=== PATIENT | female | born 2000 | race Caucasian/White ===

== ENCOUNTER 2022-11-10 23:59 | Emergency (ER) | payer OTHER, SELFPAY ==
[2022-11-11 00:18] VITALS: BP 147/66; PULSE 87; RESP 16; TEMP 36.9; O2SAT 99; BMI 44.4
--- NOTE | 2022-11-11 00:36 | ED.FEMALEGU ---
HPI - Female Genitourinary General Chief complaint: Urogenital-Female Stated complaint: Vaginal Bleeding Time Seen by Provider: 11/11/22 00:21 Source: patient Mode of arrival: ambulatory Limitations: no limitations History of Present Illness HPI Narrative: Patient comes to the emergency room complaining of vaginal bleeding. Patient states that she has taken 3 home tests, 2 of them have been faintly positive. Patient states that she is 19 days late for her menstrual period. Patient states that today after work, she noticed that she was having some vaginal bleeding and eventually decrease and now the patient has spotting. Patient states that approximately 1 year ago she had an elective . If patient is , this is her 2nd . Patient denies abdominal pain or cramping. Related Data Allergies Allergy/AdvReac Type Severity Reaction Status Date / Time No Known Allergies Allergy Unverified 05/16/20 19:30 [No Known Allergies*] Review of Systems Review of Systems: Constitutional : No Weight loss, No Fever, No Chills, No Night Sweats, No Fatigue, No Malaise ENT/Mouth : No Hearing loss, No Ear Pain, No Nasal Congestion, No Sinus Pain, No Hoarseness, No sore throat, No Rhinorrhea, No Swallowing Difficulty Eyes: No Eye Pain, No Swelling, No Redness, No Foreign Body, No Discharge, No Vision Changes Cardiovascular : No Chest Pain, No SOB, No Dyspnea on Exertion, No Orthopnea, No Edema, No Palpitations Respiratory : No Cough, No Sputum, No Wheezing, No Smoke Exposure, No Dyspnea Gastrointestinal : No Nausea, No Vomiting, No Diarrhea, No Constipation, No abdominal Pain, No Hematochezia, No Melena Genitourinary : Patient complaining of vaginal bleeding and spotting, No Dysuria, No Urinary Frequency, No Hematuria, No Urinary Incontinence, No Urgency, No Flank Pain, No Urinary Flow Changes, No Hesitancy Musculoskeletal : No joint pain, No Myalgias, No Joint Swelling Skin : No Skin Lesions, No rash Neuro : No Weakness, No Numbness, No Paresthesias, No Loss of Consciousness, No Dizziness, No Headache Psych : No Anxiety/Panic, No Depression, No SI/HI/AH/VH, No Social Issues, Heme/Lymph: No Bruising, No Bleeding,No Lymphadenopathy Endocrine : No Polyuria, No Polydipsia, No Temperature Intolerance PMFSH Social History Social History Advance Directives: No Advance Directives Information Provided: No Physical Exam Vital Signs: Vital Signs: Last Vital Signs Temp 98.4 F 11/11/22 00:18 Pulse 87 11/11/22 00:18 Resp 16 11/11/22 00:18 BP 147/66 H 11/11/22 00:18 Pulse Ox 99 11/11/22 00:18 O2 Del Method 11/11/22 00:18 BMI result Body Mass Index 44.4 Const: Other: Appearance: Alert. Oriented X3. No acute distress. Well appearing Eyes: Pupils equal, round and reactive to light. ENT: Pharynx normal. Neck: Normal inspection. Neck supple. No lymph nodes noted. No crepitus CVS: Normal heart rate and rhythm. Pulses normal. Normal S1 and S2 Respiratory: No respiratory distress. Breath sounds normal. No Wheezing. No rales Abdomen: Soft and nontender. No rigidity. No distention. Skin: Skin warm and dry. Normal skin color. Normal skin turgor. Extremities: No lower extremity edema. No Lacerations. No Rash Neuro: Oriented X 3. No motor deficit. No sensory deficit. Moving all extremities. No slurred speech. CN 2 through 12 grossly intact Psych: calm, cooperative, normal affect Course Course Course Narrative: -patient's labs an hCG levels pending. Medical Decision Making Medical Decision Making [facility] Narrative: -patient's hCG is negative. Patient's abdominal exam was benign. Patient likely has vaginal bleeding secondary to menstrual. Differential Diagnosis Differential Diagnoses: The differential diagnosis associated with the presentation includes (Menstrual period, miscarriage, dysfunctional urine bleeding) Lab Data [facility] Lab Attestation statement: I reviewed the patient's lab results. 11/11/22 00:42 11/11/22 00:42 Labs: Lab Results 11/11/22 11/11/22 11/11/22 Range/Units 00:42 00:42 00:42 WBC 9.2 (4.8-10.8) X10*3/uL RBC 4.46 (4.20-5.50) X10*6/uL Hgb 12.3 (12.0-16.0) g/dl Hct 38.0 (37.0-47.0) % MCV 85.2 (80.0-98.0) fL MCH 27.6 (27.0-33.0) pg MCHC 32.4 (31.0-35.0) g/dl RDW 13.1 (11.0-16.0) % Plt Count 402 H (160-400) X10*3/uL MPV 9.2 L (9.4-12.3) fL Immature Gran % (Auto) 0.3 (0.0-0.4) % Neut % (Auto) 65.3 (45-73) % Lymph % (Auto) 26.4 (20-40) % Craig % (Auto) 6.6 (2-11) % Eos % (Auto) 1.1 (0-4) % Baso % (Auto) 0.3 (0-2) % Lymph # (Auto) 2.4 (1.2-4.9) X10*3/uL Craig # (Auto) 0.6 (0.1-1.2) X10*3/uL Eos # (Auto) 0.1 (0.0-0.4) X10*3/uL Baso # (Auto) 0.0 (0.0-0.2) X10*3/uL Abs Immat Gran (auto) 0.03 (0.00-0.03) X10*3/uL Absolute Neuts (auto) 6.0 (2.0-8.3) x10*3/uL Absolute Nucleated RBC 0.000 (0.0-0.012) X10*3/uL Nucleated RBC % (auto) 0.0 (0.0-0.2) /100WBC Sodium 141 (135-145) mmol/L Potassium 4.2 (3.3-5.1) mmol/L Chloride 110 H (96-108) mmol/L Carbon Dioxide 24 (22-29) mmol/L Anion Gap 11 L (12-20) BUN 16 (9-16) mg/dL Creatinine 0.71 (0.5-1.4) mg/dL Estim Creat Clear Calc 130.2 Estimated GFR > 60 Random Glucose 98 (60-115) mg/dL Calcium 8.9 (8.4-10.2) mg/dL Total Bilirubin 0.3 (0.0-1.0) mg/dL Direct Bilirubin < 0.2 (0.0-0.5) mg/dL AST 18 (5-31) U/L ALT 14 (0-31) U/L Alkaline Phosphatase 80 (39-117) U/L Total Protein 7.0 (6.5-8.0) g/dL Albumin 4.1 (3.5-5.0) g/dL Beta HCG, Quant < 2 mIU/mL Blood Type O Positive Discharge Plan Discharge Clinical Impression: Menstrual changes Patient Disposition: Home, Self-Care Additional Instructions: Please follow-up with your primary care physician tomorrow. If you have any worsening or new symptoms, please return to the emergency room or call 911
[2022-11-11 00:46] LABS: MANUAL DIFF FLAG NO
[2022-11-11 00:49] LABS: Basophils Percent Auto 0.3 % (0-2); Eosinophils Absolute Auto 0.1 X10*3/uL (0.0-0.4); Eosinophils Percent Auto 1.1 % (0-4); Hemoglobin 12.3 g/dl (12.0-16.0); Imm Gran Abs Auto 0.03 X10*3/uL (0.00-0.03); Imm Gran Pct Auto 0.3 % (0.0-0.4); Lymphocytes Absolute Auto 2.4 X10*3/uL (1.2-4.9); Lymphocytes Percent Auto 26.4 % (20-40); Mean Corpuscular HGB Conc 32.4 g/dl (31.0-35.0); Mean Corpuscular Hemoglobin 27.6 pg (27.0-33.0); Mean Corpuscular Volume 85.2 fL (80.0-98.0); Mean Platelet Volume 9.2 fL (9.4-12.3); Monocytes Absolute Auto 0.6 X10*3/uL (0.1-1.2); Monocytes Percent Auto 6.6 % (2-11); Neutrophils Percent Auto 65.3 % (45-73); Platelet Count 402 X10*3/uL (160-400); Red Blood Count 4.46 X10*6/uL (4.20-5.50); Red Cell Distribution Width 13.1 % (11.0-16.0); White Blood Count 9.2 X10*3/uL (4.8-10.8)
[2022-11-11 01:16] LABS: Alanine Aminotransferase 14 U/L (0-31); Albumin Level 4.1 g/dL (3.5-5.0); Alkaline Phosphatase 80 U/L (39-117); Anion Gap 11 (12-20); Aspartate Amino Transferase 18 U/L (5-31); Bilirubin Direct < 0.2 mg/dL (0.0-0.5); Bilirubin Total 0.3 mg/dL (0.0-1.0); Blood Urea Nitrogen 16 mg/dL (9-16); Calcium 8.9 mg/dL (8.4-10.2); Carbon Dioxide 24 mmol/L (22-29); Chloride 110 mmol/L (96-108); Creatinine Clr Calc Pharmacy 130.2; Estimated Glomerular Filt Rate > 60; Glucose Random 98 mg/dL (60-115); HCG Quantitative < 2 mIU/mL; Potassium 4.2 mmol/L (3.3-5.1); Sodium 141 mmol/L (135-145)
== END 2022-11-11 01:39 | disposition home or self-care (01) ==
PROVIDERS: Emergency Provider Emergency Medicine
DX: N92.6 Irregular menstruation, unspecified (principal); Z79.899 Other long term (current) drug therapy
CPT/HCPCS: 36415; 80048; 80076; 84702; 85025; 86900; 86901; 99283; 99284

== ENCOUNTER 2022-11-28 18:35 | Emergency (ER) | payer OTHER, SELFPAY ==
--- NOTE | ~2022-11-28 | XR_ITS ---
EXAMINATION: XR foot LT 2V, XR ankle LT min 3V CLINICAL INFORMATION: Reason for Exam Lt foot pain COMPARISON: None. TECHNIQUE: 3 views of the foot and 2 views of the ankle FINDINGS: Acute nondisplaced transversely oriented comminuted fracture of the base of the fifth metatarsal neck (Salter fracture). No acute fracture or dislocation involving the ankle. Joint spaces are maintained without significant degenerative change. Soft tissue swelling along the dorsum of the foot and about the ankle. No tibiotalar joint effusion.. XR/XR ankle LT min 3V IMPRESSION: 1. Acute nondisplaced transversely oriented comminuted fracture of the base of the fifth metatarsal neck (Salter fracture). 2. Soft tissue swelling along the dorsum of the foot and about the ankle.
--- NOTE | ~2022-11-28 | XR_ITS ---
EXAMINATION: XR foot LT 2V, XR ankle LT min 3V CLINICAL INFORMATION: Reason for Exam Lt foot pain COMPARISON: None. TECHNIQUE: 3 views of the foot and 2 views of the ankle FINDINGS: Acute nondisplaced transversely oriented comminuted fracture of the base of the fifth metatarsal neck (Salter fracture). No acute fracture or dislocation involving the ankle. Joint spaces are maintained without significant degenerative change. Soft tissue swelling along the dorsum of the foot and about the ankle. No tibiotalar joint effusion.. XR/XR foot LT 2V IMPRESSION: 1. Acute nondisplaced transversely oriented comminuted fracture of the base of the fifth metatarsal neck (Salter fracture). 2. Soft tissue swelling along the dorsum of the foot and about the ankle.
--- NOTE | 2022-11-28 18:48 | ED_ITS ---
HPI - Extremity Problem General Chief complaint: Extremity Injury, Lower Stated complaint: L foot/ ankle in. fell down stairs Related Data Previous Rx's ?Medication ?Instructions ?Recorded ibuprofen 400 mg tablet 400 mg PO Q6H PRN pain #20 tabs 11/28/22 oxycodone 5 mg tablet 5 mg PO Q8H PRN pain #7 tabs 11/28/22 ketorolac 10 mg tablet 10 mg PO TID PRN pain #10 tabs 03/17/23 oxycodone 5 mg tablet 5 mg PO BID PRN pain #4 tabs 03/17/23 vit no.95-ferrous 1 tab PO DAILY #30 tabs 11/04/23 fumarate 28 mg-folic acid 800 mcg tablet () cefpodoxime 200 mg tablet 200 mg PO BID 10 days #20 tabs 12/22/23 pyridoxine (vitamin B6) 10 mg 10 mg PO DAILY PRN nausea and 12/22/23 tablet vomiting #30 tabs Allergies Allergy/AdvReac Type Severity Reaction Status Date / Time No Known Allergies Allergy Verified 12/22/23 10:56 [No Known Allergies*] [facility] Social History Social History Alcohol intake: never Patient Tobacco Use Status: Former Tobacco user Advance Directives: No Advance Directives Information Provided: No Do you have a plan to hurt others: No Plan Current occupational status: employed 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 22-year-old female presents with left foot and ankle pain status post missing a step and rolling her ankle while going down a step 2-3 hours ago. Reports pain with range of motion to left ankle with associated swelling. She fell she did not her head. Did not sustain any injuries to chest, abdomen or pelvis. Physical exam reports painful range of motion of left ankle. Neurovascular status intact Plan imaging Discharge Plan Discharge Clinical Impression: Metatarsal bone fracture Patient Disposition: Home, Self-Care Instructions: Crutch Instructions (ED), Foot Fracture in Adults (ED) Prescriptions: New ibuprofen 400 mg tablet 400 mg PO Q6H PRN (Reason: pain) Qty: 20 0RF oxycodone 5 mg tablet 5 mg PO Q8H PRN (Reason: pain) Qty: 7 0RF Rx Instructions: Partial Fill upon patient request. No Action ketorolac 10 mg tablet 10 mg PO TID PRN (Reason: pain) Qty: 10 0RF Rx Instructions: Do not take ibuprofen/Aleve/naproxen with this medication, only Tylenol or oxycodone p.r.n. severe pain oxycodone 5 mg tablet 5 mg PO BID PRN (Reason: pain) Qty: 4 0RF Rx Instructions: Partial Fill upon patient request. PNV cmb#95-ferrous fumarate-FA [] 28 mg iron- 800 mcg tablet 1 tab PO DAILY Qty: 30 0RF pyridoxine (vitamin B6) 10 mg tablet 10 mg PO DAILY PRN (Reason: nausea and vomiting) Qty: 30 0RF Rx Instructions: May take 1 tablet every 6-8 hours for nausea and vomiting. cefpodoxime 200 mg tablet 200 mg PO BID 10 Days Qty: 20 0RF Rx Instructions: must administer with a meal/food Referrals: Tio Hernandez MD [Physician] - 2 days Stand Alone Forms: Work/School Release Interventions: ED Discharge Assessment Last Done: 11/28/22 22:29 Discharge Date/Time: 11/28/22 22:32 Print Language: Wallisian
[2022-11-28 18:49] VITALS: BP 131/87; PULSE 105; RESP 14; TEMP 36.9; O2SAT 99; BMI 40.4
--- NOTE | 2022-11-28 22:07 | ED.LOWEXIN ---
HPI - Extremity Injury (Lower) General Chief Complaint: Extremity Injury, Lower Stated Complaint: L foot/ ankle in. fell down stairs History of Present Illness HPI Narrative: Patient is a 22-year-old female status post accidental fall. Patient is complaining of pain to the left foot. There is no head injury. No nausea no vomiting. No focal weakness. Patient is from home. Related Data Previous Rx's Medication Instructions Recorded ibuprofen 400 mg tablet 400 mg PO Q6H PRN pain #20 tabs 11/28/22 oxycodone 5 mg tablet 5 mg PO Q8H PRN pain #7 tabs 11/28/22 Allergies Allergy/AdvReac Type Severity Reaction Status Date / Time No Known Allergies Allergy Unverified 05/16/20 19:30 [No Known Allergies*] Review of Systems Review of Systems: Positive pain to the left foot No head injury no nausea no vomiting PMFSH Past Medical History Attestation statement: The following information was validated with the patient. Social History Social History Alcohol intake: never Advance Directives: No Advance Directives Information Provided: Yes Physical Exam Vital Signs: Vital Signs: Last Vital Signs Temp 98.4 F 11/28/22 18:49 Pulse 105 H 11/28/22 18:49 Resp 14 11/28/22 18:49 BP 131/87 11/28/22 18:49 Pulse Ox 99 11/28/22 18:49 O2 Del Method Room Air 11/28/22 18:49 BMI result Body Mass Index 40.4 Appearance: Alert. Oriented X3. No acute distress. Eyes: Pupils equal, round and reactive to light. ENT: Pharynx normal. Neck: Normal inspection. Neck supple. No lymph nodes noted. No crepitus CVS: Normal heart rate and rhythm. Pulses normal. Normal S1 and S2 Respiratory: No respiratory distress. Breath sounds normal. No Wheezing. No rales Abdomen: Soft and nontender. No rigidity. No distention. good BS x4 Skin: Skin warm and dry. Normal skin color. Normal skin turgor. Extremities: Examination of the left foot showed pain at the base of the 5th metatarsal. There is good sensation over the foot. There is no pain on palpation over the medial and lateral malleolus. Capillary refill less than 2 seconds. Sensation intact. Neuro: Oriented X 3. No motor deficit. No sensory deficit. Moving all extermities. No slurred speech Medical Decision Making Medical Decision Making MDM Narrative: Well-appearing no acute distress. Positive pain in the base of the 5th metatarsal. X-ray showed a Salter fracture. Will place in a posterior splint. Crutches for comfort. Patient to be discharged home. Follow up Orthopedic on an outpatient basis Differential Diagnosis Differential Diagnoses: The differential diagnosis associated with the presentation includes Foot fracture, sprain ankle, ankle fracture Independent Interpretation I performed an independent interpretation of an: Plain X-Ray Interpretation: Positive fracture at the base of the 5th metatarsal Radiology Impression Discussion of test interpretation with radiology: I have reviewed the radiologist's reading. Independent Historian Clinical information obtained from an independent historian. History obtained from or confirmed by: Spouse Procedures Orthopedic Splinting/Casting posterior spint left leg: Side: left Lower Extremity Injury Location: lower leg Lower Extremity Immobilizer: posterior splint Other Orthopedic Equipment: crutches Discharge Plan Discharge Clinical Impression: Metatarsal bone fracture Patient Disposition: Home, Self-Care Instructions: Crutch Instructions (ED), Foot Fracture in Adults (ED) Prescriptions: New ibuprofen 400 mg tablet 400 mg PO Q6H PRN (Reason: pain) Qty: 20 0RF oxycodone 5 mg tablet 5 mg PO Q8H PRN (Reason: pain) Qty: 7 0RF Rx Instructions: Partial Fill upon patient request. Referrals: Tio Hernandez MD [Physician] - 2 days Stand Alone Forms: Work/School Release
== END 2022-11-28 22:32 | disposition home or self-care (01) ==
PROVIDERS: Emergency Provider Emergency Medicine Emergency Medical Services
DX: S92.355A Nondisplaced fracture of fifth metatarsal bone, left foot, initial encounter for closed fracture (principal); W10.8XXA Fall (on) (from) other stairs and steps, initial encounter; Y93.9 Activity, unspecified; Y92.9 Unspecified place or not applicable; Y99.9 Unspecified external cause status
CPT/HCPCS: 29515; 73610; 73620; 99282; 99283

== ENCOUNTER → 2022-11-30 14:13 | Outpatient (BNVA) | payer OTHER, SELFPAY | PROVIDERS: Visit Provider Physician Assistant | DX: S92.352A Displaced fracture of fifth metatarsal bone, left foot, initial encounter for closed fracture (principal) | CPT/HCPCS: 99202 ==

== ENCOUNTER 2022-12-28 10:30 | Outpatient (REF) | payer OTHER, SELFPAY ==
--- NOTE | ~2022-12-28 | XR_ITS ---
EXAMINATION: XR FOOT, LEFT CLINICAL INFORMATION: Pain. COMPARISON: Radiographs dated 11/28/2022. TECHNIQUE: AP, lateral, and oblique views of the left foot. FINDINGS: There is stable alignment of a nondisplaced transverse fracture of the proximalmost left fifth metatarsal shaft. There is mild new periosteal callus formation, and tiny adjacent foreign bodies are noted adjacent to the fracture site and towards the base of the fourth toe. These may be superficial to the patient. No dislocation or left ankle joint effusion is seen. Boehler's angle is normal. There is no calcaneal spur. No focal soft tissue swelling or gas is noted. XR/XR foot LT min 3V IMPRESSION: There is stable alignment of a nondisplaced transverse fracture of the most proximal left fifth metatarsal shaft. There is mild new adjacent periosteal callus formation.
== END 2022-12-28 10:31 | disposition home or self-care (01) ==
LOC: HO.HOSX 10:30
PROVIDERS: Visit Provider Physician Assistant
DX: S92.352A Displaced fracture of fifth metatarsal bone, left foot, initial encounter for closed fracture (principal)
CPT/HCPCS: 73630; 99212

== ENCOUNTER 2023-02-01 13:28 | Outpatient (REF) | payer OTHER, SELFPAY ==
--- NOTE | ~2023-02-01 | XR_ITS ---
EXAMINATION: XR FOOT, LEFT CLINICAL INFORMATION: Left foot pain COMPARISON: Left foot 12/28/2022 TECHNIQUE: AP, lateral, and oblique views of the left foot. FINDINGS: There is a healing fracture base of fifth metatarsal. Mild hallux valgus deformity first MTP joint is noted. No visible acute fracture, dislocation or subluxation seen. The ankle mortise and subtalar joints are normal. XR/XR foot LT min 3V IMPRESSION: Healing fracture base of fifth metatarsal. No acute fracture or dislocation seen. No change from previous exam 12/28/2022
== END 2023-02-01 13:29 | disposition home or self-care (01) ==
LOC: HO.HOSX 13:28
PROVIDERS: Visit Provider Physician Assistant
DX: S92.352A Displaced fracture of fifth metatarsal bone, left foot, initial encounter for closed fracture (principal)
CPT/HCPCS: 73630; 99212

== ENCOUNTER 2023-03-16 22:15 | Emergency (ER) | payer OTHER, SELFPAY ==
[2023-03-16 22:20] VITALS: BP 144/95; PULSE 88; RESP 18; TEMP 37.2; O2SAT 97; BMI 45.2
[2023-03-16 23:40] VITALS: BP 124/81; PULSE 83; RESP 14; TEMP 36; O2SAT 100
--- NOTE | 2023-03-17 00:28 | ED.DENTAL ---
HPI - Dental/Oral General Chief complaint: Dental/Oral Stated complaint: pain/ 4 wisdom teeth removed Time Seen by Provider: 03/16/23 23:51 Source: patient Mode of arrival: ambulatory Limitations: no limitations History of Present Illness HPI Narrative: Patient comes to the emergency room complaining of dental pain. Patient states that she had her for wisdom teeth pulled out today. Patient has been trying ibuprofen without any relief. Bleeding controlled. Related Data Previous Rx's Medication Instructions Recorded ibuprofen 400 mg tablet 400 mg PO Q6H PRN pain #20 tabs 11/28/22 oxycodone 5 mg tablet 5 mg PO Q8H PRN pain #7 tabs 11/28/22 ketorolac 10 mg tablet 10 mg PO TID PRN pain #10 tabs 03/17/23 oxycodone 5 mg tablet 5 mg PO BID PRN pain #4 tabs 03/17/23 Allergies Allergy/AdvReac Type Severity Reaction Status Date / Time No Known Allergies Allergy Verified 02/01/23 11:01 [No Known Allergies*] Review of Systems Review of Systems: Constitutional : No Weight loss, No Fever, No Chills, No Night Sweats, No Fatigue, No Malaise ENT/Mouth : Complaining of dental pain, No Hearing loss, No Ear Pain, No Nasal Congestion, No Sinus Pain, No Hoarseness, No sore throat, No Rhinorrhea, No Swallowing Difficulty Eyes: No Eye Pain, No Swelling, No Redness, No Foreign Body, No Discharge, No Vision Changes Cardiovascular : No Chest Pain, No SOB, No Dyspnea on Exertion, No Orthopnea, No Edema, No Palpitations Respiratory : No Cough, No Sputum, No Wheezing, No Smoke Exposure, No Dyspnea Gastrointestinal : No Nausea, No Vomiting, No Diarrhea, No Constipation, No abdominal Pain, No Hematochezia, No Melena Genitourinary : no irregular bleeding, No Dysuria, No Urinary Frequency, No Hematuria, No Urinary Incontinence, No Urgency, No Flank Pain, No Urinary Flow Changes, No Hesitancy Musculoskeletal : No joint pain, No Myalgias, No Joint Swelling Skin : No Skin Lesions, No rash Neuro : No Weakness, No Numbness, No Paresthesias, No Loss of Consciousness, No Dizziness, No Headache Psych : No Anxiety/Panic, No Depression, No SI/HI/AH/VH, No Social Issues, Heme/Lymph: No Bruising, No Bleeding,No Lymphadenopathy Endocrine : No Polyuria, No Polydipsia, No Temperature Intolerance [facility] Social History Social History Alcohol intake: never Patient Tobacco Use Status: Former Tobacco user Smoked in Last 30 Days: No Use of substances other than those prescribed or required for medical reasons: No Advance Directives: No Advance Directives Information Provided: No Patient : No Current occupational status: employed 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 Oriented X3. No acute distress. Eyes: Pupils equal, round and reactive to light. ENT: Pharynx normal. For wisdom teeth missing, bleeding control, no abscess Neck: Normal inspection. Neck supple. No lymph nodes noted. No crepitus CVS: Normal heart rate and rhythm. Pulses normal. Normal S1 and S2 Respiratory: No respiratory distress. Breath sounds normal. No Wheezing. No rales Abdomen: Soft and nontender. No rigidity. No distention. Skin: Skin warm and dry. Normal skin color. Normal skin turgor. Extremities: No lower extremity edema. No Lacerations. No Rash Neuro: Oriented X 3. No motor deficit. No sensory deficit. Moving all extremities. No slurred speech. CN 2 through 12 grossly intact Psych: calm, cooperative, normal affect Medical Decision Making Medical Decision Making MDM Narrative: -patient was given 1 dose of IM Toradol. Also, patient instructed not to take ibuprofen anymore since she will be getting a prescription of Toradol. Also, patient will get a small prescription of oxycodone p.r.n. severe pain. Differential Diagnosis Differential Diagnoses: The differential diagnosis associated with the presentation includes (Dental pain, bleeding, postop complication) Discharge Plan Discharge Clinical Impression: Pain, dental Patient Disposition: Home, Self-Care Instructions: Toothache (ED) Additional Instructions: Please follow-up with your primary care physician tomorrow. If you have any worsening or new symptoms, please return to the emergency room or call 911 Prescriptions: New ketorolac 10 mg tablet 10 mg PO TID PRN (Reason: pain) Qty: 10 0RF Rx Instructions: Do not take ibuprofen/Aleve/naproxen with this medication, only Tylenol or oxycodone p.r.n. severe pain oxycodone 5 mg tablet 5 mg PO BID PRN (Reason: pain) Qty: 4 0RF Rx Instructions: Partial Fill upon patient request. No Action ibuprofen 400 mg tablet 400 mg PO Q6H PRN (Reason: pain) Qty: 20 0RF oxycodone 5 mg tablet 5 mg PO Q8H PRN (Reason: pain) Qty: 7 0RF Rx Instructions: Partial Fill upon patient request.
[2023-03-17] MEDS: Ketorolac Tromethamine 60 MG/2 ML VIAL IM (00:31)
== END 2023-03-17 00:40 | disposition home or self-care (01) ==
PROVIDERS: Emergency Provider Emergency Medicine; PCP Internal Medicine
DX: K08.89 Other specified disorders of teeth and supporting structures (principal); Z87.891 Personal history of nicotine dependence
CPT/HCPCS: 96372; 99284; J1885

== ENCOUNTER 2023-11-04 07:00 | Emergency (ER) | payer MEDICAID, SELFPAY ==
--- NOTE | ~2023-11-04 | US_ITS ---
EXAMINATION: US OBSTETRICAL ULTRASOUND CLINICAL INFORMATION: Status post fall. . HCG pending. COMPARISON: None available. LMP: 09/12/2023. Gestational age by maternal dates is 7 weeks 4 days. Estimated date of delivery by maternal dates is 06/18/2024. TECHNIQUE: Transabdominal and transvaginal imaging was performed. FINDINGS: There is a single intrauterine gestational sac with visible yolk sac, embryo/fetus, and cardiac activity. There is no significant subchorionic hemorrhage or hematoma. HR: 129 beats per minute. CRL (crown rump length): 0.87 cm (6 weeks 6 days +/- 4 days). GREGOR (estimated date of delivery): 06/23/2024 +/- 4 days. MATERNAL ADNEXA: The right maternal ovary measures 4.6 x 1.5 x 2.1 cm. The left maternal ovary measures 2.7 x 1.9 x 2.4 cm. There is no significant maternal adnexal mass. No maternal pelvic ascites. US/US OB <= 14 weeks fetus IMPRESSION: 1. Single intrauterine gestation with ultrasound gestational age of 6 weeks 6 days +/- 4 days. 2. Estimated date of delivery is 06/23/2024 +/- 4 days. 3. No maternal adnexal mass or pelvic ascites.
[2023-11-04 07:13] VITALS: BP 135/65; PULSE 96; RESP 18; TEMP 36.8; O2SAT 99; BMI 44.0
--- NOTE | 2023-11-04 07:33 | ED.FALL ---
HPI - Fall General Chief Complaint: Fall Stated Complaint: fall quest Time Seen by Provider: 11/04/23 07:32 Source: patient Mode of arrival: ambulatory Limitations: no limitations History of Present Illness HPI Narrative: This is a 23 year old female A1 presenting w/ concerns of abdominal pain status post fall yesterday night. Patient reports that she was walking her laundry down the steps, lost her footing, fell forward landing onto her abdomen, she reports she is worried because last week she took a test which was positive. Patient reports abdominal pain is in the lower abdomen/pelvic region reports it as a pressure. Patient is not on blood thinners. She did not hit her head or lose consciousness. She tells me her last menstrual period was on September 12. She has not currently followed by OBGYN but is scheduled to see 1 soon and is not taking vitamins. Not on blood thinners. She denies preceding symptoms to fall. She denies changes in urination, back pain, nausea, vomiting, headache, vision changes, hematemesis, melena, chest pain and shortness of breath. Related Data Previous Rx's Medication Instructions Recorded ibuprofen 400 mg tablet 400 mg PO Q6H PRN pain #20 tabs 11/28/22 oxycodone 5 mg tablet 5 mg PO Q8H PRN pain #7 tabs 11/28/22 ketorolac 10 mg tablet 10 mg PO TID PRN pain #10 tabs 03/17/23 oxycodone 5 mg tablet 5 mg PO BID PRN pain #4 tabs 03/17/23 vit no.95-ferrous 1 tab PO DAILY #30 tabs 11/04/23 fumarate 28 mg-folic acid 800 mcg tablet () Allergies Allergy/AdvReac Type Severity Reaction Status Date / Time No Known Allergies Allergy Verified 02/01/23 11:01 [No Known Allergies*] Review of Systems Review of Systems: Yes all other systems are reviewed and are negative PMFSH Past Medical History Attestation statement: The following information was validated with the patient. 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 Oriented X3.? No acute distress.? Head: Normocephalic, atraumatic, no step-offs or deformities Eyes: Pupils equal, round and reactive to light.? ENT: Pharynx normal.? Neck: Normal inspection.? Neck supple.? CVS: Normal heart rate and rhythm.? Pulses normal.? Respiratory: No respiratory distress.? Breath sounds normal.? Abdomen: Soft and very minimal tenderness to lower abdomen. Normoactive bowel sounds. No overlying skin changes. Skin: Skin warm and dry.? Normal skin color.? Normal skin turgor.? Extremities: No lower extremity edema.? No calf ttp. 5/5 strength to bilateral upper and lower extremities Back: No midline tenderness, no C-spine tenderness, full range of motion, no CVA tenderness bilaterally Neuro: Oriented X 3.? No motor deficit.? No sensory deficit. CN 2-12 intact Course Reevaluation(s) Reevaluation #1: Patient's CBC unremarkable. Chemistry no acute findings requiring intervention. HCG elevated and consistent with , ultrasound showing heart rate of 129, 6 weeks 6 day old fetus. Patient with very minimal tenderness. Therefore I do not feel as though CT abdomen is indicated, unlikely liver lack, splenic lack. No signs of acute blood loss anemia. No hypotension or tachycardia. This is likely a contusion to the abdomen. Will have her follow-up with PCP, OBGYN. I sent prenatals. I did discuss this case with my attending who agrees with diagnosis and treatment plan. Educated patient on diagnosis and treatment plan, answered all question, patient verbalizes understanding. At this time patient will be discharged home, advised to return with new or worsening symptoms. Educated on worrisome signs and symptoms and when to return. At this time I feel comfortable discharge home. Time: 10:32 Medical Decision Making Medical Decision Making MDM Narrative: 23-year-old female presents with abdominal discomfort/pelvic discomfort status post fall yesterday, patient fell onto her abdomen thinks she may be . Physical exam no overlying skin changes. Minimal tenderness to lower abdomen. History and physical exam concerning for contusion to abdominal wall. Unlikely demise. Unlikely liver, splenic lack or intra-abdominal etiologies. I do not suspect acute abdomen. No signs of pneumothorax or traumatic injury to chest, head, neck. No head strike or loss of consciousness no indication for head scan Plan labs, imaging. Differential Diagnosis Differential Diagnoses: The differential diagnosis associated with the presentation includes History and physical exam concerning for contusion to abdominal wall. Unlikely demise. Unlikely liver, splenic lack or intra-abdominal etiologies. I do not suspect acute abdomen. No signs of pneumothorax or traumatic injury to chest, head, neck. Admission/Observation Consideration of admission/observation: Escalation of care including admission/observation considered Unlikely Lab Data MDM Lab Attestation statement: I reviewed the patient's lab results. 11/04/23 07:42 11/04/23 07:42 Labs: Lab Results 11/04/23 11/04/23 Range/Units 07:42 08:47 WBC 9.1 (4.8-10.8) X10*3/uL RBC 4.44 (4.20-5.50) X10*6/uL Hgb 12.4 (12.0-16.0) g/dl Hct 37.7 (37.0-47.0) % MCV 84.9 (80.0-98.0) fL MCH 27.9 (27.0-33.0) pg MCHC 32.9 (31.0-35.0) g/dl RDW 13.0 (11.0-16.0) % Plt Count 322 (160-400) X10*3/uL MPV 9.6 (9.4-12.3) fL Immature Gran % (Auto) 0.2 (0.0-0.4) % Neut % (Auto) 67.2 (45-73) % Lymph % (Auto) 23.8 (20-40) % [place] % (Auto) 7.7 (2-11) % Eos % (Auto) 0.8 (0-4) % Baso % (Auto) 0.3 (0-2) % Lymph # (Auto) 2.2 (1.2-4.9) X10*3/uL [place] # (Auto) 0.7 (0.1-1.2) X10*3/uL Eos # (Auto) 0.1 (0.0-0.4) X10*3/uL Baso # (Auto) 0.0 (0.0-0.2) X10*3/uL Abs Immat Gran (auto) 0.02 (0.00-0.03) X10*3/uL Absolute Neuts (auto) 6.1 (2.0-8.3) x10*3/uL Absolute Nucleated RBC 0.000 (0.0-0.012) X10*3/uL Nucleated RBC % (auto) 0.0 (0.0-0.2) /100WBC Sodium 136 (135-145) mmol/L Potassium 3.6 (3.3-5.1) mmol/L Chloride 108 (96-108) mmol/L Carbon Dioxide 22 (22-29) mmol/L Anion Gap 10 L (12-20) BUN 8 L (9-16) mg/dL Creatinine 0.71 (0.5-1.4) mg/dL Estim Creat Clear Calc 128.4 Estimated GFR > 60 Random Glucose 96 (60-115) mg/dL Calcium 9.1 (8.4-10.2) mg/dL Total Bilirubin 0.2 (0.0-1.0) mg/dL AST 14 (5-31) U/L ALT 13 (0-31) U/L Alkaline Phosphatase 56 (39-117) U/L Total Protein 6.9 (6.5-8.0) g/dL Albumin 3.9 (3.5-5.0) g/dL Beta HCG, Quant 30960 mIU/mL Urine Color Yellow Urine Appearance Clear Urine pH 7.0 (5.0-9.0) Ur Specific [place] 1.020 (1.005-1.025) Urine Protein Negative (Neg-Trace) mg/dL Urine Glucose (UA) Negative (Negative) mg/dL Urine Ketones Negative (Negative) mg/dL Urine Blood Negative (Negative) Urine Nitrite Negative (Negative) Ur Leukocyte Esterase Negative (Negative) Independent Interpretation I performed an independent interpretation of an: CT Scan ( US/US OB <= 14 weeks fetus IMPRESSION: 1. Single intrauterine gestation with ultrasound gestational age of 6 weeks 6 days +/- 4 days. 2. Estimated date of delivery is 06/23/2024 +/- 4 days. 3. No maternal adnexal mass or pelvic ascites.) Radiology Impression Discussion of test interpretation with radiology: I have reviewed the radiologist's reading. External Record Review External record reviewed: Inpatient record, Office record, Outpatient record, Prior outpatient labs, Prior outpatient radiology, Primary care record and Outside ED record Prescription Management I considered prescription management with: Other ( vitamins ) Chronic Conditions Patient?s care impacted by: Other (obesity ) Critical Care Time Critical Care Time Critical Care Time: Yes Total Critical Care Time: 35 Attestation: I attest to this time spent taking care of the patient, obtaining history, physical, reviewing labs, imaging, speaking to my attending Discharge Plan Discharge Clinical Impression: Fall, Intrauterine , Abdominal pain Patient Disposition: Home, Self-Care Instructions: Fall Prevention (ED), at 7 to 10 Weeks (ED) Additional Instructions: Take your medications as prescribed. If you were prescribed antibiotics today, it is important that you take your medication to their entirety, do not skip any doses, do not finish them early. Follow-up with your primary care provider this week. Return to the emergency department with new or worsening symptoms. Such as fevers, chills, chest pain, shortness of breath, nausea, vomiting, dizziness, headache, vision changes, lethargy In case of emergency call 911 LMP: 09/12/2023. Gestational age by maternal dates is 7 weeks 4 days. Estimated date of delivery by maternal dates is 06/18/2024. TECHNIQUE: Transabdominal and transvaginal imaging was performed. FINDINGS: There is a single intrauterine gestational sac with visible yolk sac, embryo/fetus, and cardiac activity. There is no significant subchorionic hemorrhage or hematoma. HR: 129 beats per minute. CRL (crown rump length): 0.87 cm (6 weeks 6 days +/- 4 days). GREGOR (estimated date of delivery): 06/23/2024 +/- 4 days. MATERNAL ADNEXA: The right maternal ovary measures 4.6 x 1.5 x 2.1 cm. The left maternal ovary measures 2.7 x 1.9 x 2.4 cm. There is no significant maternal adnexal mass. No maternal pelvic ascites. US/US OB <= 14 weeks fetus IMPRESSION: 1. Single intrauterine gestation with ultrasound gestational age of 6 weeks 6 days +/- 4 days. 2. Estimated date of delivery is 06/23/2024 +/- 4 days. 3. No maternal adnexal mass or pelvic ascites. Prescriptions: New PNV cmb#95-ferrous fumarate-FA [] 28 mg iron- 800 mcg tablet 1 tab PO DAILY Qty: 30 0RF No Action ketorolac 10 mg tablet 10 mg PO TID PRN (Reason: pain) Qty: 10 0RF Rx Instructions: Do not take ibuprofen/Aleve/naproxen with this medication, only Tylenol or oxycodone p.r.n. severe pain oxycodone 5 mg tablet 5 mg PO BID PRN (Reason: pain) Qty: 4 0RF Rx Instructions: Partial Fill upon patient request. ibuprofen 400 mg tablet 400 mg PO Q6H PRN (Reason: pain) Qty: 20 0RF oxycodone 5 mg tablet 5 mg PO Q8H PRN (Reason: pain) Qty: 7 0RF Rx Instructions: Partial Fill upon patient request. Referrals: Praful Thompson MD [Primary Care Provider] - 2 days Stand Alone Forms: Work/School Release
[2023-11-04 08:00] LABS: MANUAL DIFF FLAG NO
[2023-11-04 08:02] LABS: Basophils Percent Auto 0.3 % (0-2); Eosinophils Absolute Auto 0.1 X10*3/uL (0.0-0.4); Eosinophils Percent Auto 0.8 % (0-4); Hematocrit 37.7 % (37.0-47.0); Hemoglobin 12.4 g/dl (12.0-16.0); Imm Gran Abs Auto 0.02 X10*3/uL (0.00-0.03); Imm Gran Pct Auto 0.2 % (0.0-0.4); Lymphocytes Absolute Auto 2.2 X10*3/uL (1.2-4.9); Lymphocytes Percent Auto 23.8 % (20-40); Mean Corpuscular HGB Conc 32.9 g/dl (31.0-35.0); Mean Corpuscular Hemoglobin 27.9 pg (27.0-33.0); Mean Corpuscular Volume 84.9 fL (80.0-98.0); Mean Platelet Volume 9.6 fL (9.4-12.3); Monocytes Absolute Auto 0.7 X10*3/uL (0.1-1.2); Monocytes Percent Auto 7.7 % (2-11); Neutrophils Absolute Auto 6.1 x10*3/uL (2.0-8.3); Neutrophils Percent Auto 67.2 % (45-73); Platelet Count 322 X10*3/uL (160-400); Red Blood Count 4.44 X10*6/uL (4.20-5.50); White Blood Count 9.1 X10*3/uL (4.8-10.8)
[2023-11-04 08:26] LABS: Alanine Aminotransferase 13 U/L (0-31); Albumin Level 3.9 g/dL (3.5-5.0); Alkaline Phosphatase 56 U/L (39-117); Anion Gap 10 (12-20); Aspartate Amino Transferase 14 U/L (5-31); Bilirubin Total 0.2 mg/dL (0.0-1.0); Blood Urea Nitrogen 8 mg/dL (9-16); Calcium 9.1 mg/dL (8.4-10.2); Carbon Dioxide 22 mmol/L (22-29); Chloride 108 mmol/L (96-108); Creatinine Clr Calc Pharmacy 128.4; Estimated Glomerular Filt Rate > 60; Glucose Random 96 mg/dL (60-115); Potassium 3.6 mmol/L (3.3-5.1); Sodium 136 mmol/L (135-145); Total Protein 6.9 g/dL (6.5-8.0)
[2023-11-04 08:54] LABS: Appearance Urine Clear; Color Urine Yellow; Glucose Urine UA Negative (Negative); Leukocyte Esterase Urine Negative (Negative); Nitrite Urine Negative (Negative); Urine Blood Negative (Negative); Urine Ketones Negative (Negative); Urine Protein Negative (Neg-Trace)
[2023-11-04 09:10] VITALS: BP 117/59; PULSE 78; RESP 16; TEMP 36.5; O2SAT 98
[2023-11-04 10:40] VITALS: BP 113/69; PULSE 77; RESP 16; TEMP 36.7; O2SAT 98
== END 2023-11-04 10:40 | disposition home or self-care (01) ==
PROVIDERS: Physician Assistant; Emergency Provider Emergency Medicine; PCP Internal Medicine
DX: S39.91XA Unspecified injury of abdomen, initial encounter (principal); R10.2 Pelvic and perineal pain; W10.9XXA Fall (on) (from) unspecified stairs and steps, initial encounter; Y93.9 Activity, unspecified; Y92.9 Unspecified place or not applicable; Y99.8 Other external cause status; Z79.899 Other long term (current) drug therapy
CPT/HCPCS: 36415; 76801; 80053; 81003; 84702; 85025; 99284

== ENCOUNTER 2023-12-22 10:41 | Emergency (ER) | payer OTHER, SELFPAY ==
[2023-12-22 10:53] VITALS: BP 141/68; PULSE 115; RESP 20; TEMP 36.5; O2SAT 97; BMI 42.2
[2023-12-22 11:47] LABS: MANUAL DIFF FLAG NO
[2023-12-22 11:48] LABS: Basophils Percent Auto 0.2 % (0-2); Eosinophils Percent Auto 0.1 % (0-4); Hematocrit 37.5 % (37.0-47.0); Hemoglobin 12.6 g/dl (12.0-16.0); Imm Gran Abs Auto 0.03 X10*3/uL (0.00-0.03); Imm Gran Pct Auto 0.3 % (0.0-0.4); Lymphocytes Absolute Auto 0.9 X10*3/uL (1.2-4.9); Lymphocytes Percent Auto 9.9 % (20-40); Mean Corpuscular HGB Conc 33.6 g/dl (31.0-35.0); Mean Corpuscular Hemoglobin 28.5 pg (27.0-33.0); Mean Corpuscular Volume 84.8 fL (80.0-98.0); Mean Platelet Volume 9.6 fL (9.4-12.3); Monocytes Absolute Auto 0.5 X10*3/uL (0.1-1.2); Monocytes Percent Auto 5.7 % (2-11); Neutrophils Percent Auto 83.8 % (45-73); Platelet Count 311 X10*3/uL (160-400); Red Blood Count 4.42 X10*6/uL (4.20-5.50); Red Cell Distribution Width 13.1 % (11.0-16.0); White Blood Count 9.5 X10*3/uL (4.8-10.8)
[2023-12-22 12:04] LABS: Alanine Aminotransferase 40 U/L (0-31); Albumin Level 4.1 g/dL (3.5-5.0); Alkaline Phosphatase 57 U/L (39-117); Anion Gap 12 (12-20); Aspartate Amino Transferase 26 U/L (5-31); Bilirubin Direct 1.4 mg/dL (0.0-0.5); Blood Urea Nitrogen 10 mg/dL (9-16); Calcium 9.8 mg/dL (8.4-10.2); Carbon Dioxide 24 mmol/L (22-29); Chloride 104 mmol/L (96-108); Creatinine Clr Calc Pharmacy 136.7; Estimated Glomerular Filt Rate > 60; Glucose Random 77 mg/dL (60-115); Lipase 10 U/L (8-78); Potassium 3.4 mmol/L (3.3-5.1); Sodium 137 mmol/L (135-145); Total Protein 7.5 g/dL (6.5-8.0)
--- NOTE | 2023-12-22 12:07 | ED_ITS ---
HPI - General Adult General Chief complaint: Abdominal Pain Stated complaint: Vomiting Stomach Pain Time Seen by Provider: 12/22/23 12:06 Source: patient Mode of arrival: ambulatory Limitations: no limitations History of Present Illness HPI narrative: Patient is a 23 year old assigned female at with a history of currently being 14 weeks presenting to the emergency department today with nausea and vomiting. Patient states that over the last few days she has had nausea and vomiting. Patient states that she has an OBGYN. Patient denies any vaginal bleeding or discharge. Patient denies any dizziness, lightheadedness, abdominal pain, fever, chills, blurry vision, double vision, loss of vision, chest pain, difficulty breathing, shortness of breath, back pain, night sweats, pain with urination, increased urinary frequency, increased urinary urgency, blood in [his/her/their] urine or stool, syncope or a near syncopal episode, recent trauma or falls, bowel incontinence, bladder incontinence, bowel retention, bladder retention, or any other complaints at this time. Onset (ago): day(s) Relieving factors: none Exacerbating factors: none Associated symptoms: nausea/vomiting Treatments prior to arrival: none Related Data Previous Rx's ?Medication ?Instructions ?Recorded ibuprofen 400 mg tablet 400 mg PO Q6H PRN pain #20 tabs 11/28/22 oxycodone 5 mg tablet 5 mg PO Q8H PRN pain #7 tabs 11/28/22 ketorolac 10 mg tablet 10 mg PO TID PRN pain #10 tabs 03/17/23 oxycodone 5 mg tablet 5 mg PO BID PRN pain #4 tabs 03/17/23 vit no.95-ferrous 1 tab PO DAILY #30 tabs 11/04/23 fumarate 28 mg-folic acid 800 mcg tablet () cefpodoxime 200 mg tablet 200 mg PO BID 10 days #20 tabs 12/22/23 pyridoxine (vitamin B6) 10 mg 10 mg PO DAILY PRN nausea and 12/22/23 tablet vomiting #30 tabs Allergies Allergy/AdvReac Type Severity Reaction Status Date / Time No Known Allergies Allergy Verified 12/22/23 10:56 [No Known Allergies*] Review of Systems 2 Constitutional: Constitutional: Reports no additional constitutional complaints, Denies chills, Denies fever(s) and Denies night sweats Eyes: Eyes: Reports no additional eye complaints, Denies blurry vision, Denies change in vision, Denies diplopia, Denies eye discharge, Denies loss of vision and Denies eye pain ENT: Denies dizziness Cardiovascular: Cardiovascular: Reports no additional cardiovascular complaints, Denies chest pain, Denies lightheadedness, Denies Loss of Consciousness and Denies dyspnea Respiratory: Respiratory: Reports no additional respiratory complaints and Denies dyspnea Gastrointestinal: Gastrointestinal: Reports no additional gastrointestinal complaints, Denies abdominal pain, Denies melena, Denies hematochezia, Denies change in bowel habits, Denies change in stool character, Reports nausea and Reports vomiting Genitourinary: Genitourinary: Denies hematuria, Denies urinary frequency, Denies dysuria, Denies urinary incontinence, Denies urinary hesitancy and Denies urinary urgency Musculoskeletal: Musculoskeletal: Reports no additional musculoskeletal complaints, Denies numbness and Denies tingling Neurologic: Denies dizziness, Denies loss of vision, Denies numbness and Denies tingling Psychiatric: Psychiatric: Reports no additional psychiatric complaints Endocrine: Endocrine: Reports no additional endocrine complaints Hematologic/Lymphatic: Hematologic/Lymphatic: Reports no additional hematologic/lymphatic complaints Allergic/Immunologic: Allergic/Immunologic: Reports no additional allergic/immunologic complaints PMFSH Past Medical History Attestation statement: The following information was validated with the patient. 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 Physical Exam ED Vital Signs: Vital Signs - 24 hr 12/22/23 15:22 Temperature 99.4 F Pulse Rate 97 Respiratory Rate 20 Blood Pressure 115/67 Pulse Oximetry 100 Oxygen Delivery Method Room Air BMI result Body Mass Index 42.2 Const General: cooperative, no acute distress, alert and awake Nutritional Appearance: well nourished Orientation/consciousness: patient oriented x3 Limitations: no limitations HENMT Head: Yes normal to inspection and Yes atraumatic Ears: hearing grossly normal bilaterally and external ears normal General nose exam: Normal external nose present, no nasal discharge noted and no epistaxis Face and sinus: Yes normal facial exam, No abrasion and No laceration Mouth: Normal oral and palatal mucosa present, no drooling and no muffled voice Eyes General: appearance normal, both eyes and all related structures Periorbital: periorbital findings normal Eyelids: Yes eyelids normal Conjunctivae: conjunctivae normal Pupils: Equal, round and reactive pupils present EOM: EOMs intact bilaterally Neck Neck: Yes normal visual inspection, Yes full ROM and Yes no lymphadenopathy Chest Chest palpation & inspection: normal inspection of the chest Resp Effort & Inspection: normal respiratory effort and able to speak in complete sentences GI Inspection: Yes normal to inspection Palpation (GI): Soft to palpation, not firm, nontender and no guarding Neuro General: patient oriented x3 and moves all extremities Cranial nerves: Yes Equal, round and reactive pupils present Cognition (Neuro): normal cognition Motor exam (neuro): 5/5 motor strength present throughout Sensory Exam: Normal double simultaneous stimulation for sensation Coordination: [id number] test normal Extrem General: Yes normal to inspection, Yes full ROM and Yes capillary refill normal Psych Appearance: grossly normal Mental Status: mental status grossly normal Affect: normal affect Attitude: cooperative Thought process: Normal thought process present Thought content: Normal thought content present Insight: Good insight present (Psych) Medications Administered Discontinued Medications Generic Name Dose Route Start Last Admin Trade Name Freq PRN Reason Stop Dose Admin Diphenhydramine HCl 25 mg 12/22/23 12:08 12/22/23 12:39 Diphenhydramine Hcl 50 Mg/Ml Vial IVPUSH 12/22/23 12:09 25 mg ONCE ONE Administration Sodium Chloride 1,000 mls @ 999 mls/hr 12/22/23 12:15 12/22/23 14:11 Ns IV 12/22/23 13:15 Infused .Q1H1M ROSALINO Infusion Sodium Chloride 1,000 mls @ 999 mls/hr 12/22/23 14:00 12/22/23 14:09 Ns IV 12/22/23 15:00 999 mls/hr .Q1H1M ROSALINO Administration Metoclopramide HCl 10 mg 12/22/23 12:08 12/22/23 12:39 Metoclopramide Hcl 10 Mg/2 Ml Vial IVPUSH 12/22/23 12:09 10 mg ONCE ONE Administration Medical Decision Making Medical Decision Making MDM Narrative: Patient is a 23 year old assigned female at with a history of current 14 weeks presenting to the emergency department today with nausea and vomiting. Patient's physical exam was unremarkable. Patient's blood work was unremarkable. Patient's urine showed a possible UTI. Given patient's status, will treat. I explained my physical exam findings as well as all test results to the patient. I answered all questions asked by the patient. Patient received IV fluids, IV Reglan, and IV Benadryl which she stated helped her symptoms significantly. I stressed the importance of the patient taking her medication as prescribed. I stressed the importance of the patient following up with her primary care provider and her OBGYN. I stressed the importance of the patient returning to the emergency department immediately if her symptoms were to worsen or if she were to develop any dizziness, shortness of breath, difficulty breathing, chest pain, blurry vision, loss of vision, nausea, vomiting, abdominal pain, fever, chills, back pain, or any other complaints. Patient verbalized agreement and understanding with this treatment plan and discharge. Differential Diagnosis Differential Diagnoses: The differential diagnosis associated with the presentation includes Nausea Vomiting Nausea and vomiting associated with Admission/Observation Consideration of admission/observation: Escalation of care including admission/observation considered Patient would have been admitted to the hospital had her work up had any findings where hospital admission was appropriate and her clinical presentation warranted hospital admission. Lab Data [facility] Lab Attestation statement: I reviewed the patient's lab results. My interpretation of these results are in the [facility] Rationale portion of this note. 12/22/23 11:40 12/22/23 11:40 Labs: Lab Results 12/22/23 12/22/23 Range/Units 11:40 14:25 WBC 9.5 (4.8-10.8) X10*3/uL RBC 4.42 (4.20-5.50) X10*6/uL Hgb 12.6 (12.0-16.0) g/dl Hct 37.5 (37.0-47.0) % MCV 84.8 (80.0-98.0) fL MCH 28.5 (27.0-33.0) pg MCHC 33.6 (31.0-35.0) g/dl RDW 13.1 (11.0-16.0) % Plt Count 311 (160-400) X10*3/uL MPV 9.6 (9.4-12.3) fL Immature Gran % (Auto) 0.3 (0.0-0.4) % Neut % (Auto) 83.8 H (45-73) % Lymph % (Auto) 9.9 L (20-40) % [place] % (Auto) 5.7 (2-11) % Eos % (Auto) 0.1 (0-4) % Baso % (Auto) 0.2 (0-2) % Lymph # (Auto) 0.9 L (1.2-4.9) X10*3/uL [place] # (Auto) 0.5 (0.1-1.2) X10*3/uL Eos # (Auto) 0.0 (0.0-0.4) X10*3/uL Baso # (Auto) 0.0 (0.0-0.2) X10*3/uL Abs Immat Gran (auto) 0.03 (0.00-0.03) X10*3/uL Absolute Neuts (auto) 8.0 (2.0-8.3) x10*3/uL Absolute Nucleated RBC 0.000 (0.0-0.012) X10*3/uL Nucleated RBC % (auto) 0.0 (0.0-0.2) /100WBC Sodium 137 (135-145) mmol/L Potassium 3.4 (3.3-5.1) mmol/L Chloride 104 (96-108) mmol/L Carbon Dioxide 24 (22-29) mmol/L Anion Gap 12 (12-20) BUN 10 (9-16) mg/dL Creatinine 0.65 (0.5-1.4) mg/dL Estim Creat Clear Calc 136.7 Estimated GFR > 60 Random Glucose 77 (60-115) mg/dL Calcium 9.8 D (8.4-10.2) mg/dL Total Bilirubin 2.0 H (0.0-1.0) mg/dL Direct Bilirubin 1.4 H (0.0-0.5) mg/dL AST 26 (5-31) U/L ALT 40 H (0-31) U/L Alkaline Phosphatase 57 (39-117) U/L Total Protein 7.5 (6.5-8.0) g/dL Albumin 4.1 (3.5-5.0) g/dL Lipase 10 (8-78) U/L Urine Color Dark Yellow Urine Appearance Clear Urine pH 5.5 (5.0-9.0) Ur Specific [place] >= 1.030 H (1.005-1.025) Urine Protein 30 (1+) H (Neg-Trace) mg/dL Urine Glucose (UA) Negative (Negative) mg/dL Urine Ketones >=160 (Negative) mg/dL Urine Blood Negative (Negative) Urine Nitrite Negative (Negative) Ur Leukocyte Esterase Negative (Negative) Urine RBC 0-2 (0-2) /HPF Urine WBC 0-5 (0-5) /HPF Ur Squamous Epith Cells 11-20 (0-2) /HPF Urine Bacteria Trace (None Seen) Hyaline Casts 0-2 (0-2) /LPF Prescription Management I considered prescription management with: Antibiotic (patient prescribed an antibiotic for possible UTI) and Other (patient prescribed an anti-emetic) Critical Care Time Critical Care Time Critical Care Time: Yes Total Critical Care Time: 128 Attestation: I spent 128 minutes of Critical Care Time with this patient. This does not include time spent on separately reported billable procedures. Discharge Plan Discharge Clinical Impression: , Nausea & vomiting, UTI (urinary tract infection) Patient Disposition: Home, Self-Care Instructions: (ED), Urinary Tract Infection in Women (DC), Acute Nausea and Vomiting (ED) Additional Instructions: Your lab work was unremarkable. Your urine showed a possible urinary tract infection. Given your current status, we are treating that with an antibiotic. Follow up with your primary care provider and your OBGYN. Return to the emergency department immediately if your symptoms worsen or if you develop any dizziness, shortness of breath, difficulty breathing, chest pain, blurry vision, loss of vision, nausea, vomiting, abdominal pain, fever, chills, back pain, or any other complaints. Prescriptions: New pyridoxine (vitamin B6) 10 mg tablet 10 mg PO DAILY PRN (Reason: nausea and vomiting) Qty: 30 0RF Rx Instructions: May take 1 tablet every 6-8 hours for nausea and vomiting. cefpodoxime 200 mg tablet 200 mg PO BID 10 Days Qty: 20 0RF Rx Instructions: must administer with a meal/food No Action ketorolac 10 mg tablet 10 mg PO TID PRN (Reason: pain) Qty: 10 0RF Rx Instructions: Do not take ibuprofen/Aleve/naproxen with this medication, only Tylenol or oxycodone p.r.n. severe pain oxycodone 5 mg tablet 5 mg PO BID PRN (Reason: pain) Qty: 4 0RF Rx Instructions: Partial Fill upon patient request. ibuprofen 400 mg tablet 400 mg PO Q6H PRN (Reason: pain) Qty: 20 0RF oxycodone 5 mg tablet 5 mg PO Q8H PRN (Reason: pain) Qty: 7 0RF Rx Instructions: Partial Fill upon patient request. PNV cmb#95-ferrous fumarate-FA [] 28 mg iron- 800 mcg tablet 1 tab PO DAILY Qty: 30 0RF Referrals: Praful Thompson MD [Primary Care Provider] - Interventions: ED Discharge Assessment Last Done: 12/22/23 15:22 Discharge Date/Time: 12/22/23 15:23 Print Language: Armenian
[2023-12-22] MEDS: diphenhydrAMINE HCL 50 MG/ML VIAL 25 MG IVPUSH (12:39)
[2023-12-22] MEDS: 0.9 % Sodium Chloride 1,000 ML 999 ML IV ×2 (12:39→14:09)
[2023-12-22] MEDS: Metoclopramide HCl 10 MG/2 ML VIAL IVPUSH (12:39)
[2023-12-22 14:33] LABS: Appearance Urine Clear; Color Urine Dark Yellow; Glucose Urine UA Negative (Negative); Leukocyte Esterase Urine Negative (Negative); Nitrite Urine Negative (Negative); PH 5.5 (5.0-9.0); Specific Gravity - Urine >= 1.030 (1.005-1.025); UMIC TRIGGER UACC YES; Urine Blood Negative (Negative); Urine Ketones >=160 mg/dL (Negative); Urine Protein 30 (1+) mg/dL (Neg-Trace)
[2023-12-22 14:46] LABS: Bacteria Urine Trace (None Seen); Hyaline Casts Urine 0-2 /LPF (0-2); RBC Urine 0-2 /HPF (0-2); WBC Urine 0-5 /HPF (0-5)
[2023-12-22 15:22] VITALS: BP 115/67; PULSE 97; RESP 20; TEMP 37.4; O2SAT 100
== END 2023-12-22 15:23 | disposition home or self-care (01) ==
PROVIDERS: Emergency Provider Emergency Medicine; PCP Internal Medicine
DX: O23.42 Unspecified infection of urinary tract in pregnancy, second trimester (principal); N39.0 Urinary tract infection, site not specified; O21.9 Vomiting of pregnancy, unspecified; Z3A.14 14 weeks gestation of pregnancy
CPT/HCPCS: 36415; 80048; 80076; 81001; 83690; 85025; 96361; 96374; 96375; 99283; 99284; J1200; J2765

== ENCOUNTER 2024-09-05 18:14 | Emergency (ER) | payer OTHER, SELFPAY ==
--- NOTE | ~2024-09-05 | XR_ITS ---
CLINICAL HISTORY: Pneumonia 1 view chest x-ray Comparison: None Findings: No consolidation, pneumothorax, or pleural effusion. Heart size is normal. No acute fracture. IMPRESSION: No consolidation. This document has been electronically signed by: Jatin Ohara MD on 09/05/2024 20:29:38
[2024-09-05 18:45] VITALS: BP 136/73; PULSE 79; RESP 18; TEMP 36.5; O2SAT 100; BMI 46.3
--- NOTE | 2024-09-05 18:50 | ECG_ITS ---
Test Reason : CP, SOB, ASTHMA Blood Pressure : */* mmHG Vent. Rate : 74 BPM Atrial Rate : 74 BPM P-R Int : 166 ms QRS Dur : 82 ms QT Int : 366 ms P-R-T Axes : 45 44 29 degrees QTcB Int : 406 ms Normal sinus rhythm Normal ECG No previous ECGs available Referred By: Flavio Borrero Electronically Signed By: HERMINIA CORTES
--- NOTE | 2024-09-05 18:52 | ED_ITS ---
HPI - Asthma General Chief Complaint: Asthma Stated Complaint: Asthma Time Seen by Provider: 09/05/24 21:00 Source: patient Mode of arrival: ambulatory Limitations: no limitations History of Present Illness ED Provider: Dr. Nilsa Mancuso HPI Narrative: Patient comes to the emergency room complaining of asthma exacerbation, cough for several weeks. At this time, patient denies shortness of breath, chest pain chest tightness. Chills. Related Data Previous Rx's ?Medication ?Instructions ?Recorded ibuprofen 400 mg tablet 400 mg PO Q6H PRN pain #20 tabs 11/28/22 oxycodone 5 mg tablet 5 mg PO Q8H PRN pain #7 tabs 11/28/22 ketorolac 10 mg tablet 10 mg PO TID PRN pain #10 tabs 03/17/23 oxycodone 5 mg tablet 5 mg PO BID PRN pain #4 tabs 03/17/23 vit no.95-ferrous 1 tab PO DAILY #30 tabs 11/04/23 fumarate 28 mg-folic acid 800 mcg tablet () cefpodoxime 200 mg tablet 200 mg PO BID 10 days #20 tabs 12/22/23 pyridoxine (vitamin B6) 10 mg 10 mg PO DAILY PRN nausea and 12/22/23 tablet vomiting #30 tabs benzonatate 100 mg capsule 100 mg PO TID PRN cough #12 caps 09/06/24 prednisone 50 mg tablet 50 mg PO DAILY #4 tabs 09/06/24 Allergies Allergy/AdvReac Type Severity Reaction Status Date / Time No Known Allergies Allergy Verified 09/05/24 18:47 [No Known Allergies*] Review of Systems 2 Review of Systems: Constitutional : No Weight loss, No Fever, No Chills, No Night Sweats, No Fatigue, No Malaise ENT/Mouth : No Hearing loss, No Ear Pain, No Nasal Congestion, No Sinus Pain, No Hoarseness, No sore throat, No Rhinorrhea, No Swallowing Difficulty Eyes: No Eye Pain, No Swelling, No Redness, No Foreign Body, No Discharge, No Vision Changes Cardiovascular : No Chest Pain, No SOB, No Dyspnea on Exertion, No Orthopnea, No Edema, No Palpitations Respiratory : Complaining of cough, frequent asthma exacerbations, no shortness of breath at this time Gastrointestinal : No Nausea, No Vomiting, No Diarrhea, No Constipation, No abdominal Pain, No Hematochezia, No Melena Genitourinary : no irregular bleeding, No Dysuria, No Urinary Frequency, No Hematuria, No Urinary Incontinence, No Urgency, No Flank Pain, No Urinary Flow Changes, No Hesitancy Musculoskeletal : No joint pain, No Myalgias, No Joint Swelling Skin : No Skin Lesions, No rash Neuro : No Weakness, No Numbness, No Paresthesias, No Loss of Consciousness, No Dizziness, No Headache Psych : No Anxiety/Panic, No Depression, No SI/HI/AH/VH, No Social Issues, Heme/Lymph: No Bruising, No Bleeding,No Lymphadenopathy Endocrine : No Polyuria, No Polydipsia, No Temperature Intolerance [facility] Past Medical History Medical History (Updated 09/06/24 @ 00:23 by Nilsa Mancuso MD) Asthma Social History Social History Alcohol intake: never Patient Tobacco Use Status: Former Tobacco user Advance Directives: No Advance Directives Information Provided: No Current occupational status: employed 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 Oriented X3. No acute distress. Eyes: Pupils equal, round and reactive to light. ENT: Pharynx normal. Neck: Normal inspection. Neck supple. No lymph nodes noted. No crepitus CVS: Normal heart rate and rhythm. Pulses normal. Normal S1 and S2 Respiratory: No respiratory distress. Breath sounds normal. No Wheezing. No rales Abdomen: Soft and nontender. No rigidity. No distention. Skin: Skin warm and dry. Normal skin color. Normal skin turgor. Extremities: No lower extremity edema. No Lacerations. No Rash Neuro: Oriented X 3. No motor deficit. No sensory deficit. Moving all extremities. No slurred speech. CN 2 through 12 grossly intact Psych: calm, cooperative, normal affect Course Course Course Narrative: RME: 23 year female presents to ED for URI with pleurisy and chest pressure for a week. Patient states chest feel tight. Labs EKG SARs strep ordered. Medications Administered Discontinued Medications Generic Name Dose Route Start Last Admin Trade Name Ranjit PRN Reason Stop Dose Admin Benzonatate 100 mg 09/06/24 00:37 09/06/24 00:41 Benzonatate 100 Mg Capsule PO 09/06/24 00:38 100 mg ONCE ONE Administration Prednisone 50 mg 09/06/24 00:37 09/06/24 00:41 Prednisone 10 Mg Tablet PO 09/06/24 00:38 50 mg ONCE ONE Administration Medical Decision Making Medical Decision Making [facility] Narrative: my interpretation of labs: Patient's white blood cell count and chemistry within normal limits, serology negative for influenza, COVID, RSV and strep. Chest x-ray negative discussed with the patient that she likely has a viral URI exacerbating her asthma, no causing bronchitis as well. Patient was given Tessalon Perles and prednisone, patient states that she isn't having multiple asthma exacerbations. No wheezing or shortness of breath at this time Differential Diagnosis Differential Diagnoses: The differential diagnosis associated with the presentation includes ( asthma, bronchitis, viral illness) Lab Data [facility] Lab Attestation statement: I reviewed the patient's lab results. 09/05/24 19:18 09/05/24 19:18 Labs: Lab Results 09/05/24 Range/Units 19:18 WBC 6.9 (4.8-10.8) X10*3/uL RBC 4.81 (4.20-5.50) X10*6/uL Hgb 13.5 (12.0-16.0) g/dl Hct 41.5 (37.0-47.0) % MCV 86.3 (80.0-98.0) fL MCH 28.1 (27.0-33.0) pg MCHC 32.5 (31.0-35.0) g/dl RDW 12.9 (11.0-16.0) % Plt Count 365 (160-400) X10*3/uL MPV 9.4 (9.4-12.3) fL Immature Gran % (Auto) 0.1 (0.0-0.4) % Neut % (Auto) 70.1 (45-73) % Lymph % (Auto) 19.1 L (20-40) % [place] % (Auto) 8.8 (2-11) % Eos % (Auto) 1.5 (0-4) % Baso % (Auto) 0.4 (0-2) % Lymph # (Auto) 1.3 (1.2-4.9) X10*3/uL [place] # (Auto) 0.6 (0.1-1.2) X10*3/uL Eos # (Auto) 0.1 (0.0-0.4) X10*3/uL Baso # (Auto) 0.0 (0.0-0.2) X10*3/uL Abs Immat Gran (auto) 0.01 (0.00-0.03) X10*3/uL Absolute Neuts (auto) 4.8 (2.0-8.3) x10*3/uL Absolute Nucleated RBC 0.000 (0.0-0.012) X10*3/uL Nucleated RBC % (auto) 0.0 (0.0-0.2) /100WBC PT 11.8 (10.9-12.4) SEC INR 1.0 (0.9-1.1) APTT 33.1 (26.0-36.8) SEC Sodium 139 (135-145) mmol/L Potassium 4.3 D (3.3-5.1) mmol/L Chloride 112 H (96-108) mmol/L Carbon Dioxide 24 (22-29) mmol/L Anion Gap 7 L (12-20) BUN 13 (9-16) mg/dL Creatinine 0.73 (0.5-1.4) mg/dL Estim Creat Clear Calc 127.8 Estimated GFR > 60 Random Glucose 78 (60-115) mg/dL Calcium 8.9 D (8.4-10.2) mg/dL Total Bilirubin 0.3 (0.0-1.0) mg/dL AST 19 (5-31) U/L ALT 17 (0-31) U/L Alkaline Phosphatase 68 (39-117) U/L Troponin I High Sens < 2.7 (<3.5-17.0) ng/L Total Protein 7.2 (6.5-8.0) g/dL Albumin 4.2 (3.5-5.0) g/dL Influenza Type A (PCR) NEGATIVE (Negative) Influenza Type B (PCR) NEGATIVE (Negative) RSV RNA Qual (PCR) NEGATIVE (Negative) SARS-CoV-2 RNA (RT-PCR) NEGATIVE (Negative) S. pyogenes GrpA DENISE Negative (Negative) Independent Interpretation I performed an independent interpretation of an: Plain X-Ray Radiology Impression Discussion of test interpretation with radiology: I have reviewed the radiologist's reading. Radiologist Impression: No consolidation, pneumothorax, or pleural effusion. Heart size is normal. No acute fracture. Discharge Plan Discharge Clinical Impression: Acute viral bronchitis Patient Disposition: Home, Self-Care Instructions: Acute Bronchitis (ED) Additional Instructions: Please follow-up with your primary care physician tomorrow. If you have any worsening or new symptoms, please return to the emergency room or call 911 Prescriptions: New prednisone 50 mg tablet 50 mg PO DAILY Qty: 4 0RF benzonatate 100 mg capsule 100 mg PO TID PRN (Reason: cough) Qty: 12 0RF No Action ketorolac 10 mg tablet 10 mg PO TID PRN (Reason: pain) Qty: 10 0RF Rx Instructions: Do not take ibuprofen/Aleve/naproxen with this medication, only Tylenol or oxycodone p.r.n. severe pain oxycodone 5 mg tablet 5 mg PO BID PRN (Reason: pain) Qty: 4 0RF Rx Instructions: Partial Fill upon patient request. ibuprofen 400 mg tablet 400 mg PO Q6H PRN (Reason: pain) Qty: 20 0RF oxycodone 5 mg tablet 5 mg PO Q8H PRN (Reason: pain) Qty: 7 0RF Rx Instructions: Partial Fill upon patient request. PNV cmb#95-ferrous fumarate-FA [] 28 mg iron- 800 mcg tablet 1 tab PO DAILY Qty: 30 0RF pyridoxine (vitamin B6) 10 mg tablet 10 mg PO DAILY PRN (Reason: nausea and vomiting) Qty: 30 0RF Rx Instructions: May take 1 tablet every 6-8 hours for nausea and vomiting. cefpodoxime 200 mg tablet 200 mg PO BID 10 Days Qty: 20 0RF Rx Instructions: must administer with a meal/food Stand Alone Forms: Work/School Release Interventions: ED Discharge Assessment Last Done: 09/06/24 01:24 Discharge Date/Time: 09/06/24 01:25 Print Language: Lithuanian
--- NOTE | 2024-09-05 19:20 | MHC.EDTECH ---
This tech took over triage at 1900 and EKG preformed at 190
[2024-09-05 19:26] LABS: MANUAL DIFF FLAG NO
[2024-09-05 19:31] LABS: Basophils Percent Auto 0.4 % (0-2); Eosinophils Absolute Auto 0.1 X10*3/uL (0.0-0.4); Eosinophils Percent Auto 1.5 % (0-4); Hematocrit 41.5 % (37.0-47.0); Hemoglobin 13.5 g/dl (12.0-16.0); Imm Gran Abs Auto 0.01 X10*3/uL (0.00-0.03); Imm Gran Pct Auto 0.1 % (0.0-0.4); Lymphocytes Absolute Auto 1.3 X10*3/uL (1.2-4.9); Lymphocytes Percent Auto 19.1 % (20-40); Mean Corpuscular HGB Conc 32.5 g/dl (31.0-35.0); Mean Corpuscular Hemoglobin 28.1 pg (27.0-33.0); Mean Corpuscular Volume 86.3 fL (80.0-98.0); Mean Platelet Volume 9.4 fL (9.4-12.3); Monocytes Absolute Auto 0.6 X10*3/uL (0.1-1.2); Monocytes Percent Auto 8.8 % (2-11); Neutrophils Absolute Auto 4.8 x10*3/uL (2.0-8.3); Neutrophils Percent Auto 70.1 % (45-73); Platelet Count 365 X10*3/uL (160-400); Red Blood Count 4.81 X10*6/uL (4.20-5.50); Red Cell Distribution Width 12.9 % (11.0-16.0); White Blood Count 6.9 X10*3/uL (4.8-10.8)
[2024-09-05 19:34] LABS: IDNOW Serial# 08D9AD1C; Strep A Nucleic Acid Negative (Negative)
[2024-09-05 19:39] LABS: Prothrombin Time 11.8 SEC (10.9-12.4)
[2024-09-05 19:41] LABS: Alanine Aminotransferase 17 U/L (0-31); Albumin Level 4.2 g/dL (3.5-5.0); Alkaline Phosphatase 68 U/L (39-117); Anion Gap 7 (12-20); Aspartate Amino Transferase 19 U/L (5-31); Bilirubin Total 0.3 mg/dL (0.0-1.0); Blood Urea Nitrogen 13 mg/dL (9-16); Calcium 8.9 mg/dL (8.4-10.2); Carbon Dioxide 24 mmol/L (22-29); Chloride 112 mmol/L (96-108); Creatinine Clr Calc Pharmacy 127.8; Estimated Glomerular Filt Rate > 60; Glucose Random 78 mg/dL (60-115); Potassium 4.3 mmol/L (3.3-5.1); Sodium 139 mmol/L (135-145); Total Protein 7.2 g/dL (6.5-8.0)
[2024-09-05 19:42] LABS: Partial Thromboplastin Time 33.1 SEC (26.0-36.8)
[2024-09-05 19:50] LABS: Troponin-I High Sensitivity < 2.7 ng/L (<3.5-17.0)
[2024-09-05 20:05] LABS: Influenza A PCR NEGATIVE (Negative); Influenza B PCR NEGATIVE (Negative); Resp Syncy Virus RNA Qual PCR NEGATIVE (Negative); SARS COV2 PCR INHOUSE NEGATIVE (Negative)
[2024-09-05 22:42] VITALS: BP 127/74; PULSE 73; RESP 20; TEMP 36.6; O2SAT 100
[2024-09-06] MEDS: predniSONE 10 MG TABLET 50 MG PO (00:41)
[2024-09-06] MEDS: Benzonatate 100 MG CAPSULE PO (00:41)
[2024-09-06 01:24] VITALS: BP 127/74; PULSE 73; RESP 20; TEMP 36.6; O2SAT 100
--- NOTE | 2024-09-07 18:10 | ED_ITS ---
HPI - Asthma General Chief Complaint: Asthma Stated Complaint: Asthma Time Seen by Provider: 09/05/24 21:00 Source: patient Mode of arrival: ambulatory Limitations: no limitations Related Data Previous Rx's ?Medication ?Instructions ?Recorded ibuprofen 400 mg tablet 400 mg PO Q6H PRN pain #20 tabs 11/28/22 oxycodone 5 mg tablet 5 mg PO Q8H PRN pain #7 tabs 11/28/22 ketorolac 10 mg tablet 10 mg PO TID PRN pain #10 tabs 03/17/23 oxycodone 5 mg tablet 5 mg PO BID PRN pain #4 tabs 03/17/23 vit no.95-ferrous 1 tab PO DAILY #30 tabs 11/04/23 fumarate 28 mg-folic acid 800 mcg tablet () cefpodoxime 200 mg tablet 200 mg PO BID 10 days #20 tabs 12/22/23 pyridoxine (vitamin B6) 10 mg 10 mg PO DAILY PRN nausea and 12/22/23 tablet vomiting #30 tabs benzonatate 100 mg capsule 100 mg PO TID PRN cough #12 caps 09/06/24 prednisone 50 mg tablet 50 mg PO DAILY #4 tabs 09/06/24 albuterol sulfate 2.5 mg/0.5 mL 2.5 mg (0.5 mL) inhalation Q20M 09/07/24 solution for nebulization #30 ea albuterol sulfate 90 mcg/actuation 2 puff inhalation QID PRN 09/07/24 aerosol inhaler shortness of breath or wheezing 30 days #6.7 grams Allergies Allergy/AdvReac Type Severity Reaction Status Date / Time No Known Allergies Allergy Verified 09/05/24 18:47 [No Known Allergies*] [facility] Past Medical History Medical History (Updated 09/07/24 @ 00:00 by Eric Lynn) Asthma Social History Social History Alcohol intake: never Patient Tobacco Use Status: Former Tobacco user Advance Directives: No Advance Directives Information Provided: No Current occupational status: employed 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 I discussed this with Dr. Mancuso, who assess patient, agree to send over these prescriptions, I sent over to [facility] on [address] per her request. Medications Administered Discontinued Medications Generic Name Dose Route Start Last Admin Trade Name Freq PRN Reason Stop Dose Admin Benzonatate 100 mg 09/06/24 00:37 09/06/24 00:41 Benzonatate 100 Mg Capsule PO 09/06/24 00:38 100 mg ONCE ONE Administration Prednisone 50 mg 09/06/24 00:37 09/06/24 00:41 Prednisone 10 Mg Tablet PO 09/06/24 00:38 50 mg ONCE ONE Administration Medical Decision Making Lab Data 09/05/24 19:18 09/05/24 19:18 Labs: Lab Results 09/05/24 Range/Units 19:18 WBC 6.9 (4.8-10.8) X10*3/uL RBC 4.81 (4.20-5.50) X10*6/uL Hgb 13.5 (12.0-16.0) g/dl Hct 41.5 (37.0-47.0) % MCV 86.3 (80.0-98.0) fL MCH 28.1 (27.0-33.0) pg MCHC 32.5 (31.0-35.0) g/dl RDW 12.9 (11.0-16.0) % Plt Count 365 (160-400) X10*3/uL MPV 9.4 (9.4-12.3) fL Immature Gran % (Auto) 0.1 (0.0-0.4) % Neut % (Auto) 70.1 (45-73) % Lymph % (Auto) 19.1 L (20-40) % [place]verse % (Auto) 8.8 (2-11) % Eos % (Auto) 1.5 (0-4) % Baso % (Auto) 0.4 (0-2) % Lymph # (Auto) 1.3 (1.2-4.9) X10*3/uL [place]verse # (Auto) 0.6 (0.1-1.2) X10*3/uL Eos # (Auto) 0.1 (0.0-0.4) X10*3/uL Baso # (Auto) 0.0 (0.0-0.2) X10*3/uL Abs Immat Gran (auto) 0.01 (0.00-0.03) X10*3/uL Absolute Neuts (auto) 4.8 (2.0-8.3) x10*3/uL Absolute Nucleated RBC 0.000 (0.0-0.012) X10*3/uL Nucleated RBC % (auto) 0.0 (0.0-0.2) /100WBC PT 11.8 (10.9-12.4) SEC INR 1.0 (0.9-1.1) APTT 33.1 (26.0-36.8) SEC Sodium 139 (135-145) mmol/L Potassium 4.3 D (3.3-5.1) mmol/L Chloride 112 H (96-108) mmol/L Carbon Dioxide 24 (22-29) mmol/L Anion Gap 7 L (12-20) BUN 13 (9-16) mg/dL Creatinine 0.73 (0.5-1.4) mg/dL Estim Creat Clear Calc 127.8 Estimated GFR > 60 Random Glucose 78 (60-115) mg/dL Calcium 8.9 D (8.4-10.2) mg/dL Total Bilirubin 0.3 (0.0-1.0) mg/dL AST 19 (5-31) U/L ALT 17 (0-31) U/L Alkaline Phosphatase 68 (39-117) U/L Troponin I High Sens < 2.7 (<3.5-17.0) ng/L Total Protein 7.2 (6.5-8.0) g/dL Albumin 4.2 (3.5-5.0) g/dL Influenza Type A (PCR) NEGATIVE (Negative) Influenza Type B (PCR) NEGATIVE (Negative) RSV RNA Qual (PCR) NEGATIVE (Negative) SARS-CoV-2 RNA (RT-PCR) NEGATIVE (Negative) S. pyogenes GrpA DENISE Negative (Negative) Discharge Plan Discharge Clinical Impression: Acute viral bronchitis Patient Disposition: Home, Self-Care Instructions: Acute Bronchitis (ED) Additional Instructions: Please follow-up with your primary care physician tomorrow. If you have any worsening or new symptoms, please return to the emergency room or call 911 Prescriptions: New prednisone 50 mg tablet 50 mg PO DAILY Qty: 4 0RF benzonatate 100 mg capsule 100 mg PO TID PRN (Reason: cough) Qty: 12 0RF albuterol sulfate 90 mcg/actuation HFA aerosol inhaler 2 puff inhalation QID PRN (Reason: shortness of breath or wheezing) 30 Days Qty: 6.7 0RF albuterol sulfate 2.5 mg/0.5 mL solution for nebulization 2.5 mg inhalation Q20M Qty: 30 0RF Rx Instructions: for up to 3 doses No Action ketorolac 10 mg tablet 10 mg PO TID PRN (Reason: pain) Qty: 10 0RF Rx Instructions: Do not take ibuprofen/Aleve/naproxen with this medication, only Tylenol or oxycodone p.r.n. severe pain oxycodone 5 mg tablet 5 mg PO BID PRN (Reason: pain) Qty: 4 0RF Rx Instructions: Partial Fill upon patient request. ibuprofen 400 mg tablet 400 mg PO Q6H PRN (Reason: pain) Qty: 20 0RF oxycodone 5 mg tablet 5 mg PO Q8H PRN (Reason: pain) Qty: 7 0RF Rx Instructions: Partial Fill upon patient request. PNV cmb#95-ferrous fumarate-FA [] 28 mg iron- 800 mcg tablet 1 tab PO DAILY Qty: 30 0RF pyridoxine (vitamin B6) 10 mg tablet 10 mg PO DAILY PRN (Reason: nausea and vomiting) Qty: 30 0RF Rx Instructions: May take 1 tablet every 6-8 hours for nausea and vomiting. cefpodoxime 200 mg tablet 200 mg PO BID 10 Days Qty: 20 0RF Rx Instructions: must administer with a meal/food Stand Alone Forms: Work/School Release Interventions: ED Discharge Assessment Last Done: 09/06/24 01:24 Discharge Date/Time: 09/06/24 01:25 Print Language: Marshallese
== END 2024-09-06 01:25 | disposition home or self-care (01) ==
PROVIDERS: Physician Assistant; Emergency Provider Emergency Medicine; PCP Internal Medicine
DX: J40 Bronchitis, not specified as acute or chronic (principal); R07.89 Other chest pain; R06.02 Shortness of breath; Z03.818 Encounter for observation for suspected exposure to other biological agents ruled out; Z79.899 Other long term (current) drug therapy
CPT/HCPCS: 0241U; 71045; 80053; 84484; 85025; 85610; 85730; 87651; 93005; 99283; 99284

== ENCOUNTER → 2024-09-05 18:50 | Outpatient (BNV) | payer OTHER, SELFPAY | PROVIDERS: Emergency Provider Emergency Medicine; PCP Internal Medicine; Visit Provider Internal Medicine | DX: R07.9 Chest pain, unspecified (principal); R06.02 Shortness of breath; J44.9 Chronic obstructive pulmonary disease, unspecified | CPT/HCPCS: 93010 ==

== ENCOUNTER → 2024-09-05 18:50 | Outpatient (BNV) | payer OTHER, SELFPAY | PROVIDERS: Emergency Provider Emergency Medicine; PCP Internal Medicine; Visit Provider Radiology Neuroradiology | DX: J18.9 Pneumonia, unspecified organism (principal) | CPT/HCPCS: 71045 ==